=== PATIENT | male | born 1965 | race Caucasian/White ===

== ENCOUNTER 2017-08-01 09:14 | Emergency (ER) | payer OTHER ==
[~2017-08-01] VITALS: Ht 175.3 cm; Wt 96.7 kg
[2017-08-01 09:45] LABS: HEMATOCRIT 44.1 % (38.0-50.0); HEMOGLOBIN 15.6 G/DL (12.5-16.6); MCH 30.6 PG (29.0-34.0); MCHC 35.4 G/DL (30.0-36.0); MCV 86.5 FL (86-99); PLATELET COUNT 284 K/uL (156-360); RBC DIS.WIDTH-CV 12.2 % (11.8-14.6); RBC DIS.WIDTH-SD 38.5 % (39-53); WHITE BLOOD COUNT 14.2 K/uL (4.1-10.2)
[2017-08-01 09:59] LABS: CHLORIDE 103 mEq/L (99-109); SODIUM 138 mEq/L (136-147)
[2017-08-01 10:01] LABS: GLUCOSE 233 mg/dL (70-99)
[2017-08-01 10:05] LABS: CREATININE 1.5 mg/dL (0.6-1.3); GFR ESTIMATE (CALCULATED) 52 mL/min/ (58.99-99999)
[2017-08-01 10:06] LABS: UREA NITROGEN (BUN) 16 mg/dL (9-23)
[2017-08-01] MEDS ORDERED: NORCO 5/3251 TABLET PO (12:39)
[2017-08-01] MEDS ORDERED: ZOFRAN4 MG PO (12:39)
[2017-08-01 12:43] LABS: APPEARANCE CLEAR ((CLEAR)); BILIRUBIN NEGATIVE; BLOOD NEGATIVE; COLOR YELLOW ((YELLOW)); GLUCOSE (STRIP) >=500; KETONES 5; LEUKOCYTES NEGATIVE; NITRITE NEGATIVE; PROTEIN (STRIP) 30; SPECIFIC GRAVITY 1.037 (1.000-1.030); UCUL ADDED? NO; UROBILINOGEN 0.2 MG/DL (0.2-1.0)
[2017-08-01 12:53] VITALS: BP 131/74
== END 2017-08-01 12:54 | disposition home or self-care (01) ==
LOC: EME 09:14
DX: N20.0 Calculus of kidney (principal); E78.5 Hyperlipidemia, unspecified
CPT/HCPCS: 74176; 80048; 81003; 85027; 99281; 99284